=== PATIENT | female | born 1985 | race Asian ===

== ENCOUNTER 2022-03-02 13:52 | Inpatient (IN) | payer BC ==
[2022-03-02] MEDS ORDERED: hydrALAZINE 20 MG/ML VIAL SLOW IVP PRN ×3 (14:17→18:14)
[2022-03-02 14:20] VITALS: BMI 29.2
[2022-03-02] MEDS ORDERED: Zolpidem Tartrate 5 MG TAB PO PRN (14:50)
[2022-03-02] MEDS ORDERED: Misoprostol 200 MCG TAB PR PRN (14:50)
[2022-03-02] MEDS ORDERED: Ondansetron PF 4 MG/2 ML Vial IVP PRN (14:50)
[2022-03-02] MEDS ORDERED: Diphenoxylate HCl/Atropine Tablet PO PRN (14:50)
[2022-03-02] MEDS ORDERED: Carboprost 250 MCG/ML AMP IM PRN (14:50)
[2022-03-02] MEDS ORDERED: Methylergonovine 0.2 MG/ML VIAL IM PRN (14:50)
[2022-03-02] MEDS ORDERED: Lidocaine 1% (PF) 30 ML VIAL SC PRN (14:50)
[2022-03-02] MEDS ORDERED: Promethazine HCl 25 MG/ML VIAL IM PRN (14:50)
[2022-03-02] MEDS ORDERED: NS w/ Oxytocin 30 units 500 ML IV SCH (15:00)
[2022-03-02] MEDS ORDERED: Lactated Ringer's 1,000 ML IV SCH (15:00)
[2022-03-02 15:53] LABS: Hemoglobin 13.1 g/dL (12.0-15.5); Mean Corpuscular HGB CONC 31.7 g/dL (32.0-36.0); Mean Corpuscular Hemoglobin 28.9 pg (27.0-33.0); Mean Corpuscular Volume 91.2 fl (81.6-98.3); Mean Platelet Volume 9.5 fl (7.4-10.4); Platelet Count 230 10x3/uL (150-450); RBC Distribution Width 13.7 % (11.5-14.5); Red Blood Cell (RBC) Count 4.53 10x6/uL (3.90-5.03); White Blood Cell (WBC) Count 4.7 10x3/uL (3.5-10.5)
[2022-03-02] MEDS: NS w/ Oxytocin 30 units 500 ML IV SCH ×2 (16:02→16:41)
[2022-03-02 17:49] LABS: Hep B Surf Ag Non-Reactive S/CO (NonReactive)
[2022-03-02 17:50] LABS: HBSAg Index 0.21 S/CO (0-0.99)
[2022-03-02 17:57] LABS: Syphilis Antibody Nonreactive (Nonreactive); Syphilis Antibody Index 0.08 S/CO (<1.00 Non-Reactive)
[2022-03-02] MEDS ORDERED: Acetaminophen 500 MG TAB PO SCH (18:00)
[2022-03-02 18:13] LABS: SARS-CoV-2 NAA Rapid Test Not Detected (NotDetected)
[2022-03-02] MEDS ORDERED: Bisacodyl 10 MG SUPP PR PRN (18:14)
[2022-03-02] MEDS ORDERED: Benzocaine-Menthol 82.5 ML CAN TOP PRN (18:14)
[2022-03-02] MEDS ORDERED: diphenhydrAMINE 25 MG CAP PO PRN (18:14)
[2022-03-02] MEDS ORDERED: Boostrix 0.5 ML (Tdap) VIAL IM ONE (18:14)
[2022-03-02] MEDS ORDERED: Lanolin Ointment 7 GM TUBE TOP PRN (18:14)
[2022-03-02] MEDS ORDERED: Milk Of Magnesia 30 ML UDCUP PO PRN (18:14)
[2022-03-02] MEDS ORDERED: Ferrous Sulfate 325 MG TAB PO SCH (19:00)
[2022-03-02] MEDS ORDERED: ceFAZolin 2 GM/Dextrose 50 ML 2 GM in Premix Bag 1 BAG IVPB SCH (22:00)
[2022-03-02] MEDS: Ibuprofen 800 MG TAB PO PRN (22:14)
[2022-03-02] MEDS: Docusate 100 MG CAP PO SCH (22:14)
[2022-03-03 05:22] LABS: #Eosinphils 0.1 10x3/uL (0.0-0.5); #Monocytes 0.5 10x3/uL (0.0-1.1); #Neutrophils 5.3 10x3/uL (1.5-8.4); %Basophils 0.3 % (0.0-2.0); %Eosinophils 0.8 % (0.0-6.0); %Lymphocytes 19.5 % (18.0-47.0); %Monocytes 7.1 % (0.0-10.0); Hemoglobin 13.6 g/dL (12.0-15.5); Mean Corpuscular HGB CONC 32.8 g/dL (32.0-36.0); Mean Corpuscular Hemoglobin 28.8 pg (27.0-33.0); Mean Corpuscular Volume 87.7 fl (81.6-98.3); Mean Platelet Volume 9.6 fl (7.4-10.4); Platelet Count 224 10x3/uL (150-450); RBC Distribution Width 13.5 % (11.5-14.5); Red Blood Cell (RBC) Count 4.73 10x6/uL (3.90-5.03); White Blood Cell (WBC) Count 7.3 10x3/uL (3.5-10.5)
[2022-03-03] MEDS: Ibuprofen 800 MG TAB PO PRN (06:13)
[2022-03-03] MEDS ORDERED: Ferrous Sulfate 325 MG TAB PO SCH (08:00)
[2022-03-03] MEDS ORDERED: Prenatal Vitamin 1 TAB PO SCH (09:00)
[2022-03-03] MEDS: Docusate 100 MG CAP PO SCH (10:10)
[2022-03-03 11:45] VITALS: BP 114/76; TEMP 98.9
== END 2022-03-03 17:45 | disposition home or self-care (01) | DRG 807 ==
LOC: CSHLD/OP 13:52 → CSHLD 15:07 → CSHPP 18:25
PROVIDERS: ADMIT Obstetrics & Gynecology; ATTEND Obstetrics & Gynecology
PROC: 10E0XZZ Delivery of Products of Conception, External Approach (ICD-10-PCS; principal; 2022-03-02)
PROC: 0HQ9XZZ Repair Perineum Skin, External Approach (ICD-10-PCS; 2022-03-02)
DX: O24.425 Gestational diabetes mellitus in childbirth, controlled by oral hypoglycemic drugs (principal); Z37.0 Single live birth; Z3A.39 39 weeks gestation of pregnancy; Z79.84 Long term (current) use of oral hypoglycemic drugs; Z20.822 Contact with and (suspected) exposure to COVID-19; Z86.16 Personal history of COVID-19; O70.0 First degree perineal laceration during delivery
CPT/HCPCS: 36415; 36416; 85025; 85027; 86780; 86850; 86900; 86901; 87340; 99285; J2590; U0002

== ENCOUNTER 2022-05-05 12:50 | Outpatient (CLI) | payer BC | END 2022-05-05 12:51 | disposition home or self-care (01) | LOC: CSHULT 12:50 | PROVIDERS: ATTEND Advanced Practice Midwife | DX: E04.1 Nontoxic single thyroid nodule (principal) | CPT/HCPCS: 76536 ==

== ENCOUNTER 2024-08-23 12:21 | Outpatient (CLI) | payer BC | END 2024-08-23 12:22 | disposition home or self-care (01) | LOC: CSHMAMMO 12:21 | PROVIDERS: ATTEND Family Medicine | DX: Z12.31 Encounter for screening mammogram for malignant neoplasm of breast (principal) | CPT/HCPCS: 77067 ==

== ENCOUNTER 2025-09-01 15:49 | Outpatient (CLI) | payer BC | END 2025-09-01 15:50 | disposition home or self-care (01) | LOC: CSHMAMMO 15:49 | PROVIDERS: ATTEND Family Medicine | DX: Z12.31 Encounter for screening mammogram for malignant neoplasm of breast (principal) | CPT/HCPCS: 77063; 77067 ==